=== PATIENT | male | born 1955 | race Caucasian/White ===

== ENCOUNTER 2018-10-23 16:43 | Emergency (ER) | payer OTHER ==
[~2018-10-23] VITALS: Wt 78.0 kg
[2018-10-23] MEDS ORDERED: ACETAMINOPHEN 500 MG TAB PO STA (19:33)
--- NOTE | 2018-10-23 21:10 | ERD ---
ER Documentation Chief Complaint Chief Complaint FEVER X 2 DAYS HPI This is a 63-year-old male who presents with fever for about the last 5 days. Patient reports that he was seen in outside clinic yesterday and was diagnosed with possible pneumonia and started on Levaquin, this is his first day of antibiotic therapy. His main complaint is that he still had a fever last night. He did otherwise denies any chest pain or shortness of breath, he has no recent hospitalizations, he has no history of immunosuppression, he has no tobacco history, and he has no shortness of breath. ROS All systems reviewed and are negative except as per history of present illness. Allergies Allergies: Coded Allergies: No Known Allergy (Unverified , 10/23/18) PMhx/Soc Medical and Surgical Hx: pt denies Medical Hx, pt denies Surgical Hx Hx Alcohol Use: No Hx Substance Use: No Hx Tobacco Use: No Smoking Status: Never smoker Physical Exam Vitals Vital Signs Date Temp Pulse Resp B/P (MAP) Pulse Ox O2 O2 Flow FiO2 Time Delivery Rate 10/23/18 99.5 101 18 134/93 99 16:49 (107) Physical Exam Const: Well-appearing, nontoxic, appears in no acute distress per Head: Atraumatic Eyes: Normal Conjunctiva ENT: Normal External Ears, Nose and Mouth. Neck: Full range of motion. No meningismus. Resp: Clear to auscultation bilaterally, no wheezes rales or rhonchi. Cardio: Regular rate and rhythm, no murmurs Abd: Soft, non tender, non distended. Normal bowel sounds Skin: No petechiae or rashes Back: No midline or flank tenderness Ext: No cyanosis, or edema Neur: Awake and alert Psych: Normal Mood and Affect Results 24 hrs Current Medications Medications Dose Sig/Flaca Start Time Status Last (Trade) Ordered Route PRN Stop Time Admin Dose Reason Admin 1,000 mg ONCE STAT 10/23/18 DC 10/23/18 Acetaminophen PO 19:33 19:41 (Tylenol 10/23/18 19:34 Tab) Procedures/MDM 63-year-old male presents for evaluation of fever, in the setting of recent diagnosis with a pneumonia in outside clinic. Patient presented appearing nontoxic in no acute respiratory distress, his x-ray shows a possible atypical pneumonia, which could also be viral, but given his symptoms, I think it is reasonable to treat with antibiotic therapy. I do not feel that Levaquin would be the ideal antibiotic, given his age and multiple side effects associated with this. I just recommended switching to doxycycline, which the patient was agr eeable to, strict return precautions were given for any shortness of breath, worsening symptoms or any other concerns, at discharge patient was in no acute distress. Departure Diagnosis: Primary Impression: Fever Fever type: unspecified Qualified Codes: R50.9 - Fever, unspecified Additional Impression: Pneumonia Pneumonia type: due to unspecified organism Laterality: unspecified laterality Lung location: unspecified part of lung Qualified Codes: J18.9 - Pneumonia, unspecified organism Condition: Stable TANISHA LINDSAY MD Oct 23, 2018 21:10
[2018-10-23] MEDS ORDERED: DOXY100T20 PO (21:16)
[2018-10-23 21:23] VITALS: BP 99/72; PULSE 98; RESP 19
== END 2018-10-23 21:24 | disposition home or self-care (01) ==
LOC: FTE 16:43
DX: J18.9 Pneumonia, unspecified organism (principal)
CPT/HCPCS: 71045; Z7502; Z7610